=== PATIENT | male | born 2005 | race Caucasian/White ===

== ENCOUNTER 2024-06-28 21:22 | Emergency (ER) | payer BC | END 2024-06-29 00:17 | disposition left against medical advice (07) | LOC: CSHERS 21:22 | DX: Z53.21 Procedure and treatment not carried out due to patient leaving prior to being seen by health care provider (principal) ==

== ENCOUNTER 2025-05-08 06:02 | Day surgery (SDC) | payer BC ==
[2025-05-03 11:40] VITALS: BMI 21.5
[2025-05-08] MEDS ORDERED: CEFAZOLIN 2 GM VIAL ONE (07:05)
[2025-05-08] MEDS ORDERED: Bupivacaine/Epinephrine 0.25% 30 ML VIAL ONE (07:05)
[2025-05-08] MEDS ORDERED: PROPOFOL 20 ML ONE (07:10)
[2025-05-08] MEDS ORDERED: Rocuronium Bromide 10 MG/ML (10ML VIAL) ONE ×2 (07:12→09:07)
[2025-05-08] MEDS ORDERED: Lidocaine 1% PF 5 ML VIAL ONE (07:12)
[2025-05-08] MEDS ORDERED: SUGAMMADEX SODIUM 200 MG/2 ML VIAL ONE (09:44)
[2025-05-08] MEDS ORDERED: Ondansetron PF 4 MG/2 ML Vial ONE (09:44)
[2025-05-08] MEDS ORDERED: Ketorolac Tromethamine 30 MG (1 mL) VIAL ONE (10:08)
[2025-05-08] MEDS ORDERED: HYDROcodone/Acetaminophen 5/325 mg Tablet ONE (11:04)
== END 2025-05-08 12:21 | disposition home or self-care (01) ==
LOC: CSHSDC 06:02
PROVIDERS: ATTEND Surgery
PROC: 0JB83ZZ Excision of Abdomen Subcutaneous Tissue and Fascia, Percutaneous Approach (ICD-10-PCS; principal; 2025-05-08)
DX: D21.4 Benign neoplasm of connective and other soft tissue of abdomen (principal)
CPT/HCPCS: 88307; 88325; 88341; 88342; C1889; J1100; J1885; J2405; J2704; J3010